=== PATIENT | male | born 1960 | race African-American/Black ===

== ENCOUNTER 2022-07-09 00:20 | Inpatient (IN) | payer MEDICARE, OTHER ==
[2022-07-09] VITALS: BP 165/102
[~2022-07-09] VITALS: Ht 180.3 cm; Wt 83.5 kg
--- NOTE | 2022-07-09 00:30 | NUR ---
RECEIVED PT VIA [facility] ASSISTED BY EMT FROM [place]. ADMITTED 61 YR OLD MALE DIAGNOSED WITH RIGHT TEMPORAL LOBE SUBACUTE CVA UNDER DR. GATES. AAOX4. AMBULATORY. NO NEURO DEFICITS NOTED. NO CHEST PAIN OR ANY DISCOMFORT NOTED. SR ON TELE. HAS A PACEMAKER ON THE LEFT CHEST WALL. IV ON R AC 22G INTACT AND PATENT. ROUTINE ADMISSION DONE. ORIENTED PT TO HOSPITAL ROOM. ALL DUE MEDS GIVEN. ALL NEEDS ATTENDED. CALL LIGHT WITHIN REACH. LEFT BED IN LOWEST POSITION. SAFETY PRECAUTIONS MAINTAINED.
[2022-07-09] MEDS ORDERED: RIVAROXABAN 10 MG TABLET PO ONE (01:00)
[2022-07-09] MEDS ORDERED: LORAZEPAM 2 MG/1 ML VIAL IV PRN ×2 (01:30→09:30)
[2022-07-09] MEDS ORDERED: ACETAMINOPHEN 325 MG TABLET PO PRN (01:30)
[2022-07-09] MEDS ORDERED: ONDANSETRON 4 MG/2 ML VIAL IV PRN (01:30)
[2022-07-09] MEDS ORDERED: CHLORDIAZEPOXIDE HCL 25 MG CAPSULE PO PRN ×3 (01:30→10:00)
[2022-07-09] MEDS: TRAZODONE 100 MG TABLET PO SCH ×2 (01:45→22:47)
[2022-07-09] MEDS: MELATONIN 3 MG TABLET PO SCH ×2 (01:46→22:47)
[2022-07-09 04:00] VITALS: BP 146/92
[2022-07-09 06:50] LABS: HEMATOCRIT 47.4 % (36.7-47.1); MEAN CORPUSCULAR HEMOGLOBIN 27.9 uug (23.8-33.4); MEAN CORPUSCULAR VOLUME 84.7 fL (73.0-96.2); PLATELET COUNT (AUTO) 151 K/uL (152-348)
[2022-07-09 07:24] LABS: CREATININE 0.9 mg/dL (0.6-1.3); MAGNESIUM 2.4 mg/dL (1.8-2.4); PHOSPHOROUS 3.4 mg/dL (2.5-4.9); POTASSIUM 3.1 mmol/L (3.5-5.1)
[2022-07-09 07:38] LABS: *BILIRUBIN,URIN NEGATIVE (NEGATIVE); *CLARITY,URINE CLEAR (CLEAR); *COLOR,URINE YELLOW (YELLOW); *KETONES,URINE NEGATIVE (NEGATIVE); *UROBILINOGEN,URINE 0.2 E.U./dl (NORMAL); LEUKOCYTE ESTERASE ,URINE NEGATIVE (NEGATIVE); NITRITE, URINE NEGATIVE (NEGATIVE); UGLUCOSE 3+ (NEGATIVE)
[2022-07-09 07:42] LABS: NEUTROPHILS % (MANUAL) 0 % (42-75)
[2022-07-09 07:58] LABS: *BLOOD, URINE TRACE (NEGATIVE)
[2022-07-09] MEDS: DOCUSATE SODIUM 100 MG CAPSULE PO SCH ×2 (08:50→17:26)
[2022-07-09] MEDS ORDERED: POTASSIUM CHLORIDE 50 ML IV SCH (10:00)
[2022-07-09 11:46] LABS: BACTERIA,URINE NONE SEEN /HPF (NONE SEEN); SQUAMOUS EPITHELIAL CELL,UR FEW /HPF (NONE SEEN); WBC,URINE 0-3 /HPF (0-3)
[2022-07-09 11:53] VITALS: BP 155/97
[2022-07-09] MEDS ORDERED: POTASSIUM CHLORIDE 20 MEQ TAB.PRT.SR PO ONE (12:15)
[2022-07-09] MEDS: APIXABAN 5 MG TABLET PO SCH ×2 (12:15→22:57)
[2022-07-09] MEDS: METOPROLOL SUCCINATE XL 50 MG TAB.SR.24H PO SCH (12:15)
[2022-07-09] MEDS ORDERED: hydrALAZINE HCL IV 20 MG in IV NORMAL SALINE 50 ML IV PRN (15:30)
[2022-07-09] MEDS ORDERED: hydrALAZINE HCL 20 MG/1 ML VIAL IV PRN ×2 (15:30→17:00)
[2022-07-09 16:05] VITALS: BP 147/88
[2022-07-09] MEDS ORDERED: SWABABLE VALVE TRANSFER SET EA MC ONE (16:34)
[2022-07-09] MEDS ORDERED: CEFTRIAXONE 1 G VIAL IM SCH (16:45)
[2022-07-09] MEDS ORDERED: RIVAROXABAN 10 MG TABLET PO SCH (18:00)
[2022-07-09] MEDS: CEFTRIAXONE 1 G in IV DEXTROSE 5% 50 ML IV SCH (18:37)
[2022-07-09 20:00] VITALS: BP 154/97
--- NOTE | 2022-07-09 20:45 | NUR ---
rounds made patient in bed sleeping no distress noted breathing even and unlabored . called patient by name to given 2100 medication but patient was sound asleep will come back instead .
[2022-07-09] MEDS: TAMSULOSIN HCL 0.4 MG CAP.SR.24H PO SCH (22:46)
[2022-07-09] MEDS: ATORVASTATIN 40 MG TABLET PO SCH (22:47)
--- NOTE | 2022-07-09 22:47 | NUR ---
due medication given and patient tolerated medication with water . patient requested for some thing to eat given janice crackers, asper patient his still hungry and wants a sandwich given ham sandwich .patient awake and alert . urinal at b/s. no respiratory distress noted.
[2022-07-10] MEDS: ENALAPRILAT DIHYDRATE 1.25 MG/1 ML VIAL IV PRN ×2 (05:42→16:32)
--- NOTE | 2022-07-10 05:54 | NUR ---
PRN VASOTEC GIVEN C/O BP 157/103.
[2022-07-10 07:29] LABS: HEMATOCRIT 49.7 % (36.7-47.1); MEAN CORPUSCULAR VOLUME 84.9 fL (73.0-96.2); PLATELET COUNT (AUTO) 157 K/uL (152-348)
[2022-07-10 07:42] LABS: POTASSIUM 3.4 mmol/L (3.5-5.1)
[2022-07-10] MEDS ORDERED: POTASSIUM CHLORIDE 20 MEQ POWDER PACKET GT ONE (08:15)
[2022-07-10] MEDS: METOPROLOL SUCCINATE XL 50 MG TAB.SR.24H PO SCH (08:26)
[2022-07-10] MEDS: LOSARTAN POTASSIUM 50 MG TABLET PO SCH (08:27)
[2022-07-10] MEDS: DOCUSATE SODIUM 100 MG CAPSULE PO SCH ×2 (08:27→16:31)
[2022-07-10] MEDS: APIXABAN 5 MG TABLET PO SCH ×2 (08:27→20:04)
[2022-07-10] MEDS ORDERED: POTASSIUM CHLORIDE 20 MEQ TAB.PRT.SR PO ONE (08:30)
[2022-07-10 11:56] VITALS: BP 133/99
[2022-07-10 15:53] VITALS: BP 155/103
[2022-07-10] MEDS: CEFTRIAXONE 1 G in IV DEXTROSE 5% 50 ML IV SCH (17:34)
[2022-07-10] MEDS ORDERED: DOCU-141 PO (19:29)
[2022-07-10] MEDS ORDERED: ATOR40TA PO (19:29)
[2022-07-10] MEDS ORDERED: TAMS-3 PO (19:29)
[2022-07-10] MEDS ORDERED: APIX5TAB PO (19:29)
[2022-07-10] MEDS ORDERED: METO-357 PO (19:29)
[2022-07-10] MEDS ORDERED: TRAZ-257 PO (19:29)
[2022-07-10] MEDS ORDERED: LOSA50TA3 PO (19:29)
[2022-07-10 20:00] VITALS: BP 137/89
[2022-07-10] MEDS: TRAZODONE 100 MG TABLET PO SCH (20:02)
[2022-07-10] MEDS: ATORVASTATIN 40 MG TABLET PO SCH (20:03)
[2022-07-10] MEDS: TAMSULOSIN HCL 0.4 MG CAP.SR.24H PO SCH (20:03)
[2022-07-10] MEDS: MELATONIN 3 MG TABLET PO SCH (20:05)
[2022-07-11 04:00] VITALS: BP 144/83
[2022-07-11 07:09] LABS: HEMATOCRIT 50.3 % (36.7-47.1); MEAN CORPUSCULAR HEMOGLOBIN 27.6 uug (23.8-33.4); PLATELET COUNT (AUTO) 147 K/uL (152-348)
[2022-07-11 07:34] LABS: CREATININE 1.1 mg/dL (0.6-1.3); MAGNESIUM 2.2 mg/dL (1.8-2.4); POTASSIUM 3.4 mmol/L (3.5-5.1)
[2022-07-11] MEDS: DOCUSATE SODIUM 100 MG CAPSULE PO SCH ×2 (09:27→17:30)
[2022-07-11] MEDS: LOSARTAN POTASSIUM 50 MG TABLET PO SCH (09:28)
[2022-07-11] MEDS: APIXABAN 5 MG TABLET PO SCH (09:29)
[2022-07-11] MEDS: METOPROLOL SUCCINATE XL 50 MG TAB.SR.24H PO SCH (09:30)
[2022-07-11] MEDS ORDERED: POTASSIUM CHLORIDE 20 MEQ TAB.PRT.SR PO ONE (10:30)
[2022-07-11 11:55] VITALS: BP 122/83
[2022-07-11 12:07] LABS: NEUTROPHILS % (MANUAL) 0 % (42-75)
[2022-07-11 16:30] VITALS: BP 159/98
== END 2022-07-11 19:30 | disposition home or self-care (01) | DRG 64 ==
LOC: TELE3 00:20 → MEDSURG3 07-10 10:36
PROVIDERS: ADMIT Internal Medicine; ATTEND Internal Medicine
DX: I63.9 Cerebral infarction, unspecified (principal); I50.43 Acute on chronic combined systolic (congestive) and diastolic (congestive) heart failure; N17.0 Acute kidney failure with tubular necrosis; I42.0 Dilated cardiomyopathy; I48.20 Chronic atrial fibrillation, unspecified; N39.0 Urinary tract infection, site not specified; G81.94 Hemiplegia, unspecified affecting left nondominant side; F10.10 Alcohol abuse, uncomplicated; H53.2 Diplopia; I16.0 Hypertensive urgency; I11.0 Hypertensive heart disease with heart failure; Z79.01 Long term (current) use of anticoagulants; Z95.0 Presence of cardiac pacemaker; E78.5 Hyperlipidemia, unspecified; N40.0 Benign prostatic hyperplasia without lower urinary tract symptoms; B95.1 Streptococcus, group B, as the cause of diseases classified elsewhere
CPT/HCPCS: 36415; 70030-TC; 70450; 70490; 70496; 71045; 83735; 84100; 84484; 85025; 85610; 85730; 87040; 93307; A4663; G0378; J0696; J3480; J3490

== ENCOUNTER 2022-07-28 12:25 | Inpatient (IN) | payer MEDICARE, OTHER ==
[~2022-07-28] VITALS: Ht 182.9 cm; Wt 99.8 kg
[~2022-07-28 12:25] MED LIST: APIX5TAB PO; ATOR40TA PO; DOCU-141 PO; LOSA50TA3 PO; METO-357 PO; TAMS-3 PO; TRAZ-257 PO
[2022-07-28 13:13] LABS: HEMATOCRIT 46.6 % (36.7-47.1); MEAN CORPUSCULAR HEMOGLOBIN 27.4 uug (23.8-33.4); MEAN CORPUSCULAR VOLUME 84.2 fL (73.0-96.2); PLATELET COUNT (AUTO) 127 K/uL (152-348)
[2022-07-28] MEDS ORDERED: EMPA10TA PO (13:21)
--- NOTE | 2022-07-28 13:21 | NUR ---
Pt arrived w/ c/o dizziness and blurry and double vision. Pt stated that he is experiencing headache, 4/10. Denies n/v, afebrile. Pt have hx CVA, CHF, A-Fib, Pacemaker. Seen by Dr. Contreras for MSE.
[2022-07-28 13:43] LABS: BILIRUBIN,TOTAL 0.5 mg/dL (0.2-1.0); CREATININE 1.3 mg/dL (0.6-1.3); POTASSIUM 3.5 mmol/L (3.5-5.1); TOTAL PROTEIN, SERUM 7.2 g/dL (6.4-8.2)
--- NOTE | 2022-07-28 15:30 | NUR ---
Covid-19 swab sample sent to lab.
--- NOTE | 2022-07-28 18:30 | NUR ---
Pt will be admitted under the medical care of Dr. Baird, Telemetry unit, on room 318.
--- NOTE | 2022-07-28 19:07 | NUR ---
Endorsed to Harini CHURCH.
[2022-07-28] MEDS ORDERED: METOPROLOL SUCCINATE XL 50 MG TAB.SR.24H PO SCH (19:15)
--- NOTE | 2022-07-28 19:30 | NUR ---
SBAR FROM KEANU Fuller RN; PT IN NAD
--- NOTE | 2022-07-28 19:40 | NUR ---
Attempt to call ER about PT condition for CTA Brain and CTA Carotid. No one picked up phone.
[2022-07-28] MEDS ORDERED: SWABABLE VALVE TRANSFER SET EA MC ONE (20:05)
[2022-07-28] MEDS ORDERED: IOHEXOL 350 100 ML INFUS..BTL ONE (20:05)
[2022-07-28] MEDS ORDERED: IV NORMAL SALINE 250 ML IV ONE (20:05)
--- NOTE | 2022-07-28 20:41 | NUR ---
PT GOING TO CT SCAN
--- NOTE | 2022-07-28 20:50 | NUR ---
SBAR TO VICKEY CHURCH
--- NOTE | 2022-07-28 21:16 | NUR ---
PT GOING UP STAIRS IN WC ESCORTED BY MURALI CHURCH
[2022-07-28] MEDS ORDERED: ENALAPRILAT DIHYDRATE 1.25 MG/1 ML VIAL IV PRN (21:45)
[2022-07-28] MEDS ORDERED: hydrALAZINE HCL 20 MG/1 ML VIAL IV PRN (21:45)
--- NOTE | 2022-07-28 22:00 | NUR ---
Received Pt from ER Nurse (Long). Pt came onto unit at approximately 2118. Pt is A&Ox4 and is cooperative. No S&S of distress relating to his dx. SR with controlled PVC's on tele. Pt on Rm air. IV on l. forearm 20G. Pt able to ambulate. Pt's BP is elevated but controlled for now. Was aware from Pt that he can only drink 3 coffee cups of liquid every 24 hrs. Will inform this to the next shift. Safety measures in place. Will continue to monitor.
[2022-07-28] MEDS ORDERED: MELATONIN 3 MG TABLET PO PRN (22:15)
[2022-07-28] MEDS ORDERED: DOCUSATE SODIUM 100 MG CAPSULE PO PRN (22:15)
[2022-07-28] MEDS ORDERED: MAGNESIUM HYDROXIDE 30 ML LIQUID UDC PO PRN (22:15)
[2022-07-28] MEDS ORDERED: ONDANSETRON 4 MG/2 ML VIAL IV PRN (22:15)
[2022-07-28 22:30] VITALS: BP 163/105
[2022-07-28] MEDS: TAMSULOSIN HCL 0.4 MG CAP.SR.24H PO SCH (23:08)
[2022-07-28] MEDS: LOSARTAN POTASSIUM 50 MG TABLET PO SCH (23:08)
[2022-07-28] MEDS: ATORVASTATIN 40 MG TABLET PO SCH (23:08)
[2022-07-28] MEDS: hydrALAZINE HCL 20 MG/1 ML VIAL IV PRN (23:13)
[2022-07-28] MEDS: TRAZODONE 100 MG TABLET PO PRN (23:28)
[2022-07-29] VITALS (8 sets, daily range): BP systolic 135–164; BP diastolic 86–96
--- NOTE | 2022-07-29 01:00 | NUR ---
Observed that Pt had his Eliquis reconciled but pt hasn't been scheduled to take it yet. Will talk to MD about this.
[2022-07-29 01:04] LABS: *BILIRUBIN,URIN NEGATIVE (NEGATIVE); *CLARITY,URINE CLEAR (CLEAR); *COLOR,URINE YELLOW (YELLOW); *KETONES,URINE NEGATIVE (NEGATIVE); *UROBILINOGEN,URINE 0.2 E.U./dl (NORMAL); LEUKOCYTE ESTERASE ,URINE NEGATIVE (NEGATIVE); NITRITE, URINE NEGATIVE (NEGATIVE)
[2022-07-29 01:16] LABS: UGLUCOSE 2+ (NEGATIVE)
[2022-07-29 01:17] LABS: *BLOOD, URINE TRACE (NEGATIVE)
[2022-07-29 01:18] LABS: BACTERIA,URINE NONE SEEN /HPF (NONE SEEN); SQUAMOUS EPITHELIAL CELL,UR NONE SEEN /HPF (NONE SEEN); WBC,URINE NONE SEEN /HPF (0-3)
--- NOTE | 2022-07-29 06:37 | NUR ---
End of shift Note: Pt is A&Ox4 and is cooperative. No S&S of distress relating to his dx. SR with controlled PVC's on tele. Pt on Rm air. IV on l. forearm 20G. Pt able to ambulate. Pt's current BP is 136/91. Informed Dr. Baird about Pt's Eliquis and how it's not ordered yet. Will inform this to the next shift. Safety measures in place. Will continue to monitor.
[2022-07-29 07:29] LABS: HEMATOCRIT 47.7 % (36.7-47.1); MEAN CORPUSCULAR HEMOGLOBIN 27.3 uug (23.8-33.4); MEAN CORPUSCULAR VOLUME 83.5 fL (73.0-96.2); PLATELET COUNT (AUTO) 130 K/uL (152-348)
[2022-07-29 07:39] LABS: PHOSPHOROUS 2.8 mg/dL (2.5-4.9)
[2022-07-29 07:45] LABS: POTASSIUM 2.8 mmol/L (3.5-5.1)
[2022-07-29] MEDS: POTASSIUM CHLORIDE 50 ML IV SCH ×2 (08:59→12:00)
[2022-07-29] MEDS: SPIRONOLACTONE 25 MG TABLET PO SCH (09:00)
[2022-07-29] MEDS ORDERED: POTASSIUM CHLORIDE 20 MEQ POWDER PACKET PO ONE (09:00)
[2022-07-29] MEDS: LOSARTAN POTASSIUM 50 MG TABLET PO SCH (09:00)
[2022-07-29] MEDS: CARVEDILOL 12.5 MG TABLET PO SCH ×2 (09:24→18:15)
[2022-07-29] MEDS: APIXABAN 5 MG TABLET PO SCH ×2 (09:24→20:58)
[2022-07-29] MEDS: hydrALAZINE HCL 20 MG/1 ML VIAL IV PRN (18:59)
[2022-07-29] MEDS ORDERED: POTASSIUM CHLORIDE 20 MEQ TAB.PRT.SR PO ONE (19:15)
[2022-07-29] MEDS: ACETAMINOPHEN 325 MG TABLET PO PRN (19:47)
[2022-07-29] MEDS: TAMSULOSIN HCL 0.4 MG CAP.SR.24H PO SCH (20:56)
[2022-07-29] MEDS: ATORVASTATIN 40 MG TABLET PO SCH (20:56)
[2022-07-29] MEDS: TRAZODONE 100 MG TABLET PO PRN (22:58)
[2022-07-30 00:22] VITALS: BP 123/84
[2022-07-30 04:00] VITALS: BP 137/87
--- NOTE | 2022-07-30 08:00 | NUR ---
Pt assessed. Vital signs stable. AAOX3. PT on eliquis. BP meds given. Pt resting comfortably in bed. No signs of distress noted. will continue to monitor
[2022-07-30 08:24] LABS: CREATININE 1.1 mg/dL (0.6-1.3); MAGNESIUM 2.2 mg/dL (1.8-2.4); PHOSPHOROUS 2.8 mg/dL (2.5-4.9); POTASSIUM 3.5 mmol/L (3.5-5.1)
[2022-07-30 08:53] LABS: HEMATOCRIT 47.2 % (36.7-47.1); MEAN CORPUSCULAR HEMOGLOBIN 27.4 uug (23.8-33.4); MEAN CORPUSCULAR VOLUME 83.8 fL (73.0-96.2); PLATELET COUNT (AUTO) 137 K/uL (152-348)
[2022-07-30] MEDS: APIXABAN 5 MG TABLET PO SCH ×2 (11:32→22:35)
[2022-07-30] MEDS: CARVEDILOL 12.5 MG TABLET PO SCH ×2 (11:33→18:03)
[2022-07-30] MEDS: LOSARTAN POTASSIUM 50 MG TABLET PO SCH (11:33)
[2022-07-30] MEDS: SPIRONOLACTONE 25 MG TABLET PO SCH (11:33)
[2022-07-30 11:40] VITALS: BP 155/89
--- NOTE | 2022-07-30 12:00 | NUR ---
PT reassessed. Vital signs stable. Pt pleasantly cooperative. No signs of distress noted.
[2022-07-30] MEDS: ACETAMINOPHEN 325 MG TABLET PO PRN (13:23)
[2022-07-30 15:47] VITALS: BP 167/92
--- NOTE | 2022-07-30 16:00 | NUR ---
Pt reassessed. Vital signs stable. No signs of acute distress noted. Pt complained of headache. Tylenol given.
[2022-07-30 20:00] VITALS: BP 148/109
--- NOTE | 2022-07-30 20:18 | NUR ---
End of shift Report given to incoming nurse. Patient in stable condition. No acute distress noted.
[2022-07-30] MEDS: ATORVASTATIN 40 MG TABLET PO SCH (20:20)
[2022-07-30] MEDS: TAMSULOSIN HCL 0.4 MG CAP.SR.24H PO SCH (20:20)
[2022-07-30] MEDS: TRAZODONE 100 MG TABLET PO PRN (22:34)
[2022-07-30] MEDS ORDERED: SPIR25TA PO (23:24)
[2022-07-30] MEDS ORDERED: APIX5TAB PO (23:24)
[2022-07-30] MEDS ORDERED: CARV12.52 PO (23:24)
[2022-07-30] MEDS ORDERED: HYDR-894 PO (23:24)
[2022-07-30] MEDS: hydrALAZINE HCL 20 MG/1 ML VIAL IV PRN (23:33)
--- NOTE | 2022-07-30 23:36 | NUR ---
given prn hydralazine via the left foramen h/l no.20 c/o bp 174/102 heart rate 93 pacing .patient in bed awake and alert and verbalized understanding of the procedure informed patient that will be back in an hour to recheck bp .
[2022-07-31] VITALS: BP 174/102
[2022-07-31 04:00] VITALS: BP 146/72
[2022-07-31] MEDS ORDERED: CARVEDILOL 25 MG TABLET PO SCH (08:00)
[2022-07-31] MEDS: LOSARTAN POTASSIUM 50 MG TABLET PO SCH (08:53)
[2022-07-31] MEDS: SPIRONOLACTONE 25 MG TABLET PO SCH (08:53)
[2022-07-31] MEDS: APIXABAN 5 MG TABLET PO SCH (08:54)
[2022-07-31 11:37] VITALS: BP 139/85
--- NOTE | 2022-07-31 15:50 | NUR ---
Pt. discharged home. Noted to be stable up on the discharge and no acute distress noted. All necessary document signed. Pt. received a note from discharging Dr. (Dr. Baird) for work clearance. No c/o pain. All belongings retuned to the patient.
[2022-07-31] MEDS ORDERED: CARV25TA PO (16:29)
== END 2022-07-31 16:15 | disposition home or self-care (01) | DRG 69 ==
LOC: ER 12:25 → TELE3 21:06 → MEDSURG3 07-31 09:16
PROVIDERS: ADMIT Internal Medicine; ATTEND Internal Medicine
DX: G45.9 Transient cerebral ischemic attack, unspecified (principal); N17.0 Acute kidney failure with tubular necrosis; I50.43 Acute on chronic combined systolic (congestive) and diastolic (congestive) heart failure; I42.0 Dilated cardiomyopathy; I48.20 Chronic atrial fibrillation, unspecified; I16.0 Hypertensive urgency; I11.0 Hypertensive heart disease with heart failure; Z86.73 Personal history of transient ischemic attack (TIA), and cerebral infarction without residual deficits; E11.9 Type 2 diabetes mellitus without complications; R55 Syncope and collapse; G47.9 Sleep disorder, unspecified; E78.5 Hyperlipidemia, unspecified; Z95.810 Presence of automatic (implantable) cardiac defibrillator; F10.21 Alcohol dependence, in remission; E87.6 Hypokalemia; H53.2 Diplopia; Z87.440 Personal history of urinary (tract) infections; N40.0 Benign prostatic hyperplasia without lower urinary tract symptoms; Z20.822 Contact with and (suspected) exposure to COVID-19; R29.700 NIHSS score 0; Z79.01 Long term (current) use of anticoagulants
CPT/HCPCS: 36415; 70450; 70496; 71045; 83605; 83735; 84100; 84484; 85025; 87040; 93005; A4663; G0378; J0360; J3480; J3490; J7040; J7050; Q9967

== ENCOUNTER 2023-06-02 19:37 | Inpatient (IN) | payer MEDICARE, OTHER ==
[~2023-06-02] VITALS: Ht 177.8 cm; Wt 86.2 kg
[~2023-06-02 19:37] MED LIST changes: +CARV12.52 PO; +CARV25TA PO; -DOCU-141 PO; +EMPA10TA PO; +HYDR-894 PO; -METO-357 PO; +SPIR25TA PO
[2023-06-02 20:20] LABS: RED CELL DISTRIBUTION WIDTH 14.9 % (12.1-16.2)
[2023-06-02 20:32] LABS: BASOPHILS # (AUTO) 0.1 K/UL (0.0-0.2); BASOPHILS % (AUTO) 1.1 % (0.0-2.0); EOSINOPHILS % (AUTO) 0.9 % (0.0-7.0); HEMATOCRIT 51.3 % (36.7-47.1); HEMOGLOBIN 16.9 g/dL (12.5-16.3); LYMPHOCYTES # (AUTO) 1.5 K/uL (0.8-4.8); LYMPHOCYTES % (AUTO) 29.4 % (20.5-51.5); MEAN CORPUSCULAR HEMOGLOBIN 28.6 uug (23.8-33.4); MEAN CORPUSCULAR HGB CONC 33 g/dL (32.5-36.3); MEAN CORPUSCULAR VOLUME 86.7 fL (73.0-96.2); MONOCYTES # (AUTO) 0.6 K/uL (0.1-1.30); MONOCYTES % (AUTO) 11.8 % (0.0-11.0); NEUTROPHILS # (AUTO) 2.9 K/uL (1.8-8.9); NEUTROPHILS % (AUTO) 56.8 % (38.5-71.5); PLATELET COUNT (AUTO) 150 K/uL (152-348); RED BLOOD CELL COUNT(AUTO) 5.92 MIL/uL (4.06-5.63); WHITE BLOOD COUNT (AUTO) 5.1 K/uL (3.6-10.2)
[2023-06-02 20:33] LABS: CALCIUM 9.1 mg/dL (8.5-10.1); CARBON DIOXIDE 22 mmol/L (21-32); CHLORIDE 105 mmol/L (98-107); GLUCOSE 146 mg/dL (74-106); POTASSIUM 3.3 mmol/L (3.5-5.1); SODIUM SERUM 140 mmol/L (136-145); UREA NITROGEN, BLOOD 21 mg/dL (7-18)
[2023-06-02 20:44] LABS: DIFFERENTIAL COMMENT 1
[2023-06-02 20:46] LABS: ALANINE AMINOTRANSFERASE 19 U/L (16-63); ALKALINE PHOSPHATASE 63 U/L (50-136); ASPARTATE AMINOTRANSFERASE 10 U/L (15-37); BILIRUBIN,DIRECT 0.2 mg/dL (0.0-0.2); BILIRUBIN,TOTAL 0.4 mg/dL (0.2-1.0); NT-PRO BNP 611 pg/mL (0-125); TOTAL PROTEIN, SERUM 7.6 g/dL (6.4-8.2)
[2023-06-02] MEDS ORDERED: POTASSIUM CHLORIDE 20 MEQ TAB.PRT.SR PO ONE (21:45)
[2023-06-02] MEDS: MAGNESIUM SULFATE/D5W 100 ML IV SCH ×2 (22:00→22:35)
[2023-06-02] MEDS ORDERED: LOSA50TA39 PO (22:12)
[2023-06-02] MEDS ORDERED: FOLI1TAB94 PO (22:12)
[2023-06-02] MEDS ORDERED: HYDR-894 PO (22:12)
[2023-06-02] MEDS ORDERED: CARV25TA2 PO (22:12)
[2023-06-02] MEDS ORDERED: ATOR40TA PO (22:12)
[2023-06-02] MEDS ORDERED: hydrALAZINE HCL 25 MG TABLET PO ONE (22:15)
[2023-06-02] MEDS ORDERED: CARVEDILOL 3.125 MG TABLET PO ONE (22:15)
[2023-06-02] MEDS ORDERED: hydrALAZINE HCL 25 MG TABLET ONE (22:25)
[2023-06-02] MEDS ORDERED: CARVEDILOL 6.25 MG TABLET ONE (22:25)
[2023-06-03 04:00] VITALS: BP 167/107; TEMP 97.7; O2SAT 98
[2023-06-03] MEDS ORDERED: CLONIDINE HCL 0.1 MG TABLET PO PRN (04:30)
[2023-06-03] MEDS ORDERED: PANTOPRAZOLE SODIUM 40 MG TABLET.DR PO SCH (07:30)
[2023-06-03] MEDS ORDERED: HYDROCODONE/APAP 5-325MG TABLET PO PRN (07:30)
[2023-06-03] MEDS ORDERED: ACETAMINOPHEN 325 MG TABLET PO PRN (07:30)
[2023-06-03] MEDS ORDERED: ONDANSETRON 4 MG/2 ML VIAL IV PRN (07:30)
[2023-06-03 07:47] LABS: BASOPHILS % (AUTO) 0.8 % (0.0-2.0); HEMATOCRIT 47.4 % (36.7-47.1); HEMOGLOBIN 15.6 g/dL (12.5-16.3); LYMPHOCYTES # (AUTO) 1.3 K/uL (0.8-4.8); LYMPHOCYTES % (AUTO) 30.4 % (20.5-51.5); MEAN CORPUSCULAR HEMOGLOBIN 28.7 uug (23.8-33.4); MEAN CORPUSCULAR HGB CONC 33 g/dL (32.5-36.3); MEAN CORPUSCULAR VOLUME 87.4 fL (73.0-96.2); MONOCYTES # (AUTO) 0.8 K/uL (0.1-1.30); MONOCYTES % (AUTO) 18.2 % (0.0-11.0); NEUTROPHILS # (AUTO) 2.2 K/uL (1.8-8.9); NEUTROPHILS % (AUTO) 49.6 % (38.5-71.5); PLATELET COUNT (AUTO) 152 K/uL (152-348); RED BLOOD CELL COUNT(AUTO) 5.43 MIL/uL (4.06-5.63); RED CELL DISTRIBUTION WIDTH 15.2 % (12.1-16.2); WHITE BLOOD COUNT (AUTO) 4.4 K/uL (3.6-10.2)
[2023-06-03] MEDS ORDERED: TRAZODONE 100 MG TABLET PO PRN (08:00)
[2023-06-03 08:09] LABS: CALCIUM 8.9 mg/dL (8.5-10.1); POTASSIUM 3.8 mmol/L (3.5-5.1)
[2023-06-03 08:14] LABS: THYROID STIMULATING HORMONE 3.376 mIU/mL (0.358-3.740)
[2023-06-03 08:22] LABS: DIFFERENTIAL COMMENT 1
[2023-06-03 08:27] LABS: ALBUMIN 3.3 g/dL (3.4-5.0); BILIRUBIN,TOTAL 0.5 mg/dL (0.2-1.0); MAGNESIUM 2.9 mg/dL (1.8-2.4); PHOSPHOROUS 2.9 mg/dL (2.5-4.9); TOTAL PROTEIN, SERUM 6.7 g/dL (6.4-8.2)
[2023-06-03] MEDS ORDERED: LOSARTAN POTASSIUM 50 MG TABLET PO SCH ×2 (09:00→21:00)
[2023-06-03] MEDS ORDERED: APIXABAN 5 MG TABLET PO SCH (09:00)
[2023-06-03] MEDS ORDERED: SPIRONOLACTONE 25 MG TABLET PO SCH (09:00)
[2023-06-03] MEDS ORDERED: hydrALAZINE HCL 25 MG TABLET PO SCH (09:00)
[2023-06-03] MEDS ORDERED: FOLIC ACID 1 MG TABLET PO SCH (09:00)
[2023-06-03] MEDS ORDERED: CARVEDILOL 25 MG TABLET PO SCH (09:00)
[2023-06-03] MEDS ORDERED: CARV25TA2 PO (10:59)
[2023-06-03 11:30] VITALS: BP 144/85; TEMP 97.2; O2SAT 97
[2023-06-03 12:37] VITALS: BP 142/102; TEMP 98.1; O2SAT 99
[2023-06-03 16:08] LABS: EOSINOPHILS % (MANUAL) 2 % (0-8); LYMPHOCYTES % (MANUAL) 30 % (20-40); MONOCYTES % (MANUAL) 17 % (2-10); NEUTROPHILS % (MANUAL) 51 % (42-75); PLATELET ESTIMATE ADEQUATE
[2023-06-03 16:09] LABS: ANISOCYTOSIS 1+
[2023-06-03] MEDS ORDERED: ATORVASTATIN 40 MG TABLET PO SCH (21:00)
== END 2023-06-03 14:35 | disposition home or self-care (01) | DRG 308 ==
LOC: ER 19:42 → TELE3 22:40
PROVIDERS: ADMIT Internal Medicine; ATTEND Nurse Practitioner Acute Care
DX: I48.20 Chronic atrial fibrillation, unspecified (principal); I50.23 Acute on chronic systolic (congestive) heart failure; I42.0 Dilated cardiomyopathy; T44.7X6A Underdosing of beta-adrenoreceptor antagonists, initial encounter; E87.6 Hypokalemia; I11.0 Hypertensive heart disease with heart failure; Z86.73 Personal history of transient ischemic attack (TIA), and cerebral infarction without residual deficits; Z95.810 Presence of automatic (implantable) cardiac defibrillator; F10.11 Alcohol abuse, in remission; Z79.01 Long term (current) use of anticoagulants; Z91.138 Patient's unintentional underdosing of medication regimen for other reason; Y92.89 Other specified places as the place of occurrence of the external cause; Z79.899 Other long term (current) drug therapy; Z86.711 Personal history of pulmonary embolism; Z88.6 Allergy status to analgesic agent; Z79.84 Long term (current) use of oral hypoglycemic drugs; E11.9 Type 2 diabetes mellitus without complications; E78.5 Hyperlipidemia, unspecified
CPT/HCPCS: 36415; 70030-TC; 71045; 83550; 83735; 84100; 84443; 84484; 85025; 85730; 93005; A4663; G0378; J3475

== ENCOUNTER 2023-07-07 12:11 | Emergency (ER) | payer MEDICARE, OTHER ==
[~2023-07-07] VITALS: Ht 177.8 cm; Wt 86.2 kg
[~2023-07-07 12:11] MED LIST changes: -CARV12.52 PO; -CARV25TA PO; +CARV25TA2 PO; +FOLI1TAB94 PO; -LOSA50TA3 PO; +LOSA50TA39 PO; -TAMS-3 PO
[2023-07-07] MEDS ORDERED: methylPREDNISolone SOD SUCC 125 MG/2 ML VIAL IV ONE (12:45)
[2023-07-07] MEDS ORDERED: ALBUTEROL SULFATE 2.5 MG/3 ML NEBU NEB ONE (12:45)
[2023-07-07] MEDS ORDERED: IPRATROPIUM BROMIDE 0.5 MG/2.5 ML NEBU NEB ONE (12:45)
[2023-07-07] MEDS ORDERED: methylPREDNISolone SOD SUCC 125 MG/2 ML VIAL ONE (12:49)
[2023-07-07] MEDS ORDERED: ALBUTEROL SULFATE 2.5 MG/3 ML NEBU ONE (12:57)
[2023-07-07] MEDS ORDERED: IPRATROPIUM BROMIDE 0.5 MG/2.5 ML NEBU ONE (12:57)
[2023-07-07 13:00] VITALS: O2SAT 98
[2023-07-07 13:11] LABS: BASOPHILS # (AUTO) 0.2 K/UL (0.0-0.2); BASOPHILS % (AUTO) 3.6 % (0.0-2.0); EOSINOPHILS # (AUTO) 0.2 K/uL (0.0-0.7); EOSINOPHILS % (AUTO) 3.9 % (0.0-7.0); HEMATOCRIT 48.6 % (36.7-47.1); LYMPHOCYTES # (AUTO) 0.6 K/uL (0.8-4.8); LYMPHOCYTES % (AUTO) 14.3 % (20.5-51.5); MEAN CORPUSCULAR HEMOGLOBIN 28.4 uug (23.8-33.4); MEAN CORPUSCULAR HGB CONC 33 g/dL (32.5-36.3); MEAN CORPUSCULAR VOLUME 86.1 fL (73.0-96.2); MONOCYTES # (AUTO) 1.3 K/uL (0.1-1.30); MONOCYTES % (AUTO) 28.9 % (0.0-11.0); NEUTROPHILS # (AUTO) 2.2 K/uL (1.8-8.9); NEUTROPHILS % (AUTO) 49.3 % (38.5-71.5); PLATELET COUNT (AUTO) 121 K/uL (152-348); RED BLOOD CELL COUNT(AUTO) 5.64 MIL/uL (4.06-5.63); RED CELL DISTRIBUTION WIDTH 14.6 % (12.1-16.2); WHITE BLOOD COUNT (AUTO) 4.5 K/uL (3.6-10.2)
[2023-07-07 13:21] LABS: CALCIUM 9.1 mg/dL (8.5-10.1); CARBON DIOXIDE 26 mmol/L (21-32); CHLORIDE 105 mmol/L (98-107); CREATININE 1.1 mg/dL (0.6-1.3); GLUCOSE 120 mg/dL (74-106); POTASSIUM 3.6 mmol/L (3.5-5.1); SODIUM SERUM 140 mmol/L (136-145); UREA NITROGEN, BLOOD 15 mg/dL (7-18)
[2023-07-07 13:23] LABS: DIFFERENTIAL COMMENT 1
[2023-07-07 13:32] LABS: ALANINE AMINOTRANSFERASE 21 U/L (16-63); ALBUMIN 3.6 g/dL (3.4-5.0); ALKALINE PHOSPHATASE 49 U/L (50-136); ASPARTATE AMINOTRANSFERASE 18 U/L (15-37); BILIRUBIN,DIRECT 0.2 mg/dL (0.0-0.2); BILIRUBIN,TOTAL 0.4 mg/dL (0.2-1.0); NT-PRO BNP 919 pg/mL (0-125); TOTAL PROTEIN, SERUM 7.4 g/dL (6.4-8.2)
[2023-07-07 14:00] VITALS: O2SAT 99
[2023-07-07] MEDS ORDERED: AZIT250T13 PO (14:43)
[2023-07-07] MEDS ORDERED: ALBU18HF2 INH (14:43)
[2023-07-07] MEDS ORDERED: PRED20TA PO (14:43)
[2023-07-07] MEDS ORDERED: AMOX-430 PO (14:43)
[2023-07-07 14:44] LABS: BAND % (MANUAL) 4 % (0-10); EOSINOPHILS % (MANUAL) 3 % (0-8); LYMPHOCYTES % (MANUAL) 14 % (20-40); MONOCYTES % (MANUAL) 26 % (2-10); NEUTROPHILS % (MANUAL) 43 % (42-75); REACTIVE LYMPHOCYTES 10 % (0-0)
[2023-07-07 14:45] LABS: ANISOCYTOSIS 1+; PLATELET ESTIMATE DECREASED
[2023-07-07 15:03] VITALS: BP 159/96; O2SAT 96
== END 2023-07-07 15:05 | disposition home or self-care (01) ==
LOC: ER 12:11
DX: J20.9 Acute bronchitis, unspecified (principal); J06.9 Acute upper respiratory infection, unspecified; R05.9 Cough, unspecified; R09.81 Nasal congestion; E78.5 Hyperlipidemia, unspecified; I11.0 Hypertensive heart disease with heart failure; I50.9 Heart failure, unspecified; E11.9 Type 2 diabetes mellitus without complications; Z79.899 Other long term (current) drug therapy; Z20.822 Contact with and (suspected) exposure to COVID-19; Z88.1 Allergy status to other antibiotic agents
CPT/HCPCS: 36415; 70030-TC; 71045; 83605; 84484; 85025; 87040; 93005; A4606; A4663; J2930; J3590

== ENCOUNTER 2024-03-08 12:48 | Emergency (ER) | payer OTHER ==
[~2024-03-08] VITALS: Ht 177.8 cm; Wt 86.2 kg
[~2024-03-08 12:48] MED LIST changes: +ALBU18HF2 INH; +AMOX-430 PO; +AZIT250T13 PO; +PRED20TA PO
[2024-03-08] MEDS ORDERED: LIDO30AD10 TP (13:18)
[2024-03-08] MEDS ORDERED: METH4TAB3 PO (13:18)
[2024-03-08] MEDS ORDERED: HYDR-894 PO (13:26)
[2024-03-08] MEDS ORDERED: SACU1TAB7 PO (13:26)
[2024-03-08] MEDS ORDERED: DEXAMETHASONE SOD PHOSPHATE 10 MG INJ ONE (13:45)
[2024-03-08] MEDS: DEXAMETHASONE SOD PHOSPHATE 4 MG INJ IM ONE (13:51)
[2024-03-08 14:31] VITALS: BP 137/136; O2SAT 99
== END 2024-03-08 14:31 | disposition home or self-care (01) ==
LOC: ER 12:48
DX: M25.551 Pain in right hip (principal); Z86.73 Personal history of transient ischemic attack (TIA), and cerebral infarction without residual deficits; I10 Essential (primary) hypertension; E78.5 Hyperlipidemia, unspecified; I25.10 Atherosclerotic heart disease of native coronary artery without angina pectoris; I48.91 Unspecified atrial fibrillation; E11.9 Type 2 diabetes mellitus without complications; Z79.899 Other long term (current) drug therapy; Z88.1 Allergy status to other antibiotic agents; Z79.891 Long term (current) use of opiate analgesic; Z79.52 Long term (current) use of systemic steroids
CPT/HCPCS: 99283; 73502; 96372; J1100; A4606; A4663

== ENCOUNTER 2024-06-15 12:32 | Emergency (ER) | payer OTHER ==
[~2024-06-15 12:32] MED LIST changes: -ALBU18HF2 INH; -AMOX-430 PO; -APIX5TAB PO; -AZIT250T13 PO; +LIDO30AD10 TP; +METH4TAB3 PO; -PRED20TA PO; +SACU1TAB7 PO
== END 2024-06-15 12:39 | disposition left against medical advice (07) ==
LOC: ER 12:32
DX: Z20.822 Contact with and (suspected) exposure to COVID-19 (principal); Z53.21 Procedure and treatment not carried out due to patient leaving prior to being seen by health care provider

== ENCOUNTER 2025-02-03 11:40 | Inpatient (IN) | payer OTHER, MEDICAID ==
[~2025-02-03] VITALS: Ht 180.3 cm; Wt 100.7 kg
[2025-02-03 12:19] LABS: PLATELET COUNT (AUTO) 167 K/uL (152-348); RED BLOOD CELL COUNT(AUTO) 5.25 MIL/uL (4.06-5.63); RED CELL DISTRIBUTION WIDTH 15.6 % (12.1-16.2); WHITE BLOOD COUNT (AUTO) 6.7 K/uL (3.6-10.2)
[2025-02-03 12:31] LABS: ETHANOL 257.0 MG/DL (0-10)
[2025-02-03 12:32] LABS: ASPARTATE AMINOTRANSFERASE 38 U/L (15-37); CREATININE 1.7 mg/dL (0.6-1.3); SODIUM SERUM 141 mmol/L (136-145); TOTAL PROTEIN, SERUM 7.5 g/dL (6.4-8.2); UREA NITROGEN, BLOOD 37 mg/dL (7-18)
[2025-02-03 12:52] LABS: NT-PRO BNP 192.0 pg/mL (0-125)
[2025-02-03 13:26] LABS: LYMPHOCYTES % (MANUAL) 20 % (20-40); MONOCYTES % (MANUAL) 9 % (2-10); NEUTROPHILS % (MANUAL) 71 % (42-75); PLATELET ESTIMATE ADEQUATE
[2025-02-03] MEDS ORDERED: LORAZEPAM 0.5 MG TABLET ONE (13:57)
[2025-02-03] MEDS: LORAZEPAM 0.5 MG TABLET PO ONE (13:59)
[2025-02-03 15:03] VITALS: BP 107/83
[2025-02-03 15:40] VITALS: BP 114/68; TEMP 98.6; O2SAT 95
[2025-02-03] MEDS ORDERED: REMEDY ESSENTIAL ZINC PASTE 113 GM TP PRN (15:45)
[2025-02-03] MEDS ORDERED: DEXTROSE 50% 50 ML DISP.SYRIN IV PRN (15:45)
[2025-02-03] MEDS ORDERED: TRAZODONE 100 MG TABLET PO PRN (15:45)
[2025-02-03] MEDS ORDERED: ONDANSETRON 4 MG/2 ML VIAL IV PRN (15:45)
[2025-02-03] MEDS ORDERED: LIDOCAINE 5% PATCH TD PRN (15:45)
[2025-02-03] MEDS ORDERED: ACETAMINOPHEN 325 MG TABLET PO PRN (15:45)
[2025-02-03] MEDS: IV NS 1000 ML 1,000 ML IV PRN (16:18)
[2025-02-03] MEDS ORDERED: RIVA20TA PO (16:22)
[2025-02-03] MEDS: SACUBITRIL/VALSARTAN 49 MG-51 MG TABLET PO SCH (17:00)
[2025-02-03] MEDS: THIAMINE HCL INJ 100 MG in IV DEXTROSE 5% 50 ML IV SCH (17:31)
[2025-02-03] MEDS: BLOOD SUGAR DIAGNOSTIC 1 EACH STRIP VI SCH (17:36)
[2025-02-03] MEDS: INSULIN REGULAR, HUMAN 1000 UNIT/10 ML VIAL SQ PRN (17:41)
[2025-02-03] MEDS: RIVAROXABAN 10 MG TABLET PO SCH (17:53)
[2025-02-03] MEDS: CHLORDIAZEPOXIDE HCL 25 MG CAPSULE PO SCH (17:53)
[2025-02-03 18:05] LABS: *BILIRUBIN,URIN NEGATIVE (NEGATIVE); *CLARITY,URINE CLEAR (CLEAR); *COLOR,URINE YELLOW (YELLOW); *KETONES,URINE TRACE (NEGATIVE); *PROTEIN,URINE TRACE (NEGATIVE); *UROBILINOGEN,URINE 0.2 E.U./dl (NORMAL); LEUKOCYTE ESTERASE ,URINE 1+ (NEGATIVE); NITRITE, URINE NEGATIVE (NEGATIVE); UGLUCOSE NEGATIVE (NEGATIVE)
[2025-02-03 18:11] LABS: *AMPHETAMINE, URINE POSITIVE (NEGATIVE); *BARBITURATE, URINE NEGATIVE (NEGATIVE); *BENZODIAZEPINE, URINE NEGATIVE (NEGATIVE); *CANNABINOID, URINE NEGATIVE (NEGATIVE); *COCCAINE, URINE NEGATIVE (NEGATIVE); *OPIATE, URINE NEGATIVE (NEGATIVE); *PHENCYCLIDINE SCREEN,URINE NEGATIVE (NEGATIVE); FENTANYL, URINE NEGATIVE (NEGATIVE)
[2025-02-03 18:18] LABS: *BLOOD, URINE TRACE (NEGATIVE)
[2025-02-03 18:44] LABS: CALCIUM OXALATE CRYSTALS,UR RARE /HPF (NONE SEEN); SQUAMOUS EPITHELIAL CELL,UR FEW /HPF (NONE SEEN)
[2025-02-03 19:00] VITALS: BP 109/64; TEMP 97.8; O2SAT 94
[2025-02-03] MEDS: CARVEDILOL 25 MG TABLET PO SCH (21:00)
[2025-02-03] MEDS: ATORVASTATIN 40 MG TABLET PO SCH (21:18)
[2025-02-03] MEDS: LORAZEPAM 2 MG/1 ML VIAL IV PRN (21:26)
[2025-02-03] MEDS: ZOLPIDEM 5 MG TABLET PO PRN (22:50)
[2025-02-04] VITALS: BP 121/73; TEMP 98.3; O2SAT 95
[2025-02-04 04:00] VITALS: BP 152/89; TEMP 98.2; O2SAT 91
[2025-02-04 07:23] LABS: PLATELET COUNT (AUTO) 144 K/uL (152-348); RED BLOOD CELL COUNT(AUTO) 5.13 MIL/uL (4.06-5.63); RED CELL DISTRIBUTION WIDTH 15.4 % (12.1-16.2); WHITE BLOOD COUNT (AUTO) 5.5 K/uL (3.6-10.2)
[2025-02-04 07:29] VITALS: BP 136/78; TEMP 98.4; O2SAT 92
[2025-02-04 07:31] LABS: ASPARTATE AMINOTRANSFERASE 21.0 U/L (15-37); CREATININE 1.2 mg/dL (0.6-1.3); SODIUM SERUM 142.0 mmol/L (136-145); TOTAL PROTEIN, SERUM 6.9 g/dL (6.4-8.2); UREA NITROGEN, BLOOD 33.0 mg/dL (7-18)
[2025-02-04] MEDS: SPIRONOLACTONE 25 MG TABLET PO SCH (08:31)
[2025-02-04] MEDS: PANTOPRAZOLE SODIUM 40 MG VIAL IV SCH (08:32)
[2025-02-04] MEDS: FOLIC ACID 1 MG TABLET PO SCH (08:32)
[2025-02-04 09:37] LABS: EOSINOPHILS % (MANUAL) 1 % (0-8); LYMPHOCYTES % (MANUAL) 15 % (20-40); MONOCYTES % (MANUAL) 12 % (2-10); NEUTROPHILS % (MANUAL) 72 % (42-75); PLATELET ESTIMATE ADEQUATE
[2025-02-04 11:06] VITALS: BP 135/65; TEMP 98.4; O2SAT 94
[2025-02-04 15:11] VITALS: BP 129/74; TEMP 98.2; O2SAT 94
[2025-02-04] MEDS: THIAMINE HCL 100 MG TABLET PO SCH (16:21)
[2025-02-04 19:00] VITALS: BP 146/50; TEMP 98.2; O2SAT 97
[2025-02-05 00:05] VITALS: BP 112/87; TEMP 97.5; O2SAT 98
[2025-02-05 04:19] VITALS: BP 109/80; TEMP 98.4; O2SAT 94
[2025-02-05 07:24] LABS: PLATELET COUNT (AUTO) 142 K/uL (152-348); RED BLOOD CELL COUNT(AUTO) 5.04 MIL/uL (4.06-5.63); RED CELL DISTRIBUTION WIDTH 15.4 % (12.1-16.2); WHITE BLOOD COUNT (AUTO) 4.4 K/uL (3.6-10.2)
[2025-02-05 07:33] VITALS: BP 144/92; TEMP 98.4; O2SAT 96
[2025-02-05 07:40] LABS: CREATININE 0.8 mg/dL (0.6-1.3); SODIUM SERUM 140.0 mmol/L (136-145); UREA NITROGEN, BLOOD 21.0 mg/dL (7-18)
[2025-02-05 10:57] VITALS: BP 142/82; TEMP 98.2; O2SAT 95
[2025-02-05] MEDS: TAMSULOSIN HCL 0.4 MG CAP.SR.24H PO SCH (11:57)
[2025-02-05] MEDS: CEFTRIAXONE 1 G in IV DEXTROSE 5% 50 ML IV SCH (12:51)
[2025-02-05] MEDS: LORAZEPAM 2 MG/1 ML VIAL IV ONE (12:53)
[2025-02-05] MEDS: CHLORDIAZEPOXIDE HCL 25 MG CAPSULE PO SCH (14:13)
[2025-02-05 15:29] VITALS: BP 140/47; TEMP 98.3; O2SAT 94
[2025-02-05] MEDS: MAGNESIUM HYDROXIDE 30 ML LIQUID UDC PO PRN (16:24)
[2025-02-05 16:52] VITALS: BP 140/47
[2025-02-05] MEDS ORDERED: LORAZEPAM 2 MG/1 ML VIAL IV PRN (18:00)
[2025-02-05] MEDS ORDERED: HYDROCODONE/APAP 10-325 MG TABLET PO PRN (20:15)
== END 2025-02-05 21:40 | disposition left against medical advice (07) | DRG 315 ==
LOC: ER 11:40 → TELE3 15:17
PROVIDERS: ADMIT Nurse Practitioner Acute Care; ATTEND Nurse Practitioner Acute Care
PROC: 05HB33Z Insertion of Infusion Device into Right Basilic Vein, Percutaneous Approach (ICD-10-PCS; principal; 2025-02-05)
DX: T82.199A Other mechanical complication of unspecified cardiac device, initial encounter (principal); F10.139 Alcohol abuse with withdrawal, unspecified; N39.0 Urinary tract infection, site not specified; N17.9 Acute kidney failure, unspecified; I50.42 Chronic combined systolic (congestive) and diastolic (congestive) heart failure; I42.0 Dilated cardiomyopathy; I48.0 Paroxysmal atrial fibrillation; Y90.8 Blood alcohol level of 240 mg/100 ml or more; I25.2 Old myocardial infarction; I25.10 Atherosclerotic heart disease of native coronary artery without angina pectoris; I11.0 Hypertensive heart disease with heart failure; E78.5 Hyperlipidemia, unspecified; E11.9 Type 2 diabetes mellitus without complications; M16.12 Unilateral primary osteoarthritis, left hip; Z96.641 Presence of right artificial hip joint; Z86.73 Personal history of transient ischemic attack (TIA), and cerebral infarction without residual deficits; Z79.899 Other long term (current) drug therapy; Z79.84 Long term (current) use of oral hypoglycemic drugs; Z88.6 Allergy status to analgesic agent; Y71.1 Therapeutic (nonsurgical) and rehabilitative cardiovascular devices associated with adverse incidents; Y92.89 Other specified places as the place of occurrence of the external cause; Z95.810 Presence of automatic (implantable) cardiac defibrillator; F41.9 Anxiety disorder, unspecified; Z79.01 Long term (current) use of anticoagulants; Z53.29 Procedure and treatment not carried out because of patient's decision for other reasons
CPT/HCPCS: 36415; 70030-TC; 71045; 83735; 84100; 84484; 85025; 85730; 87077; 87086; A4606; A4663; G0378; G0480; J0696; J1815; J2060; J2470; J3411; J7040